=== PATIENT | female | born 1980 | race Caucasian/White ===

== ENCOUNTER 2018-06-23 01:15 | Inpatient (IN) | payer MEDICARE, MEDICAID ==
[~2018-06-23] VITALS: Ht 167.6 cm; Wt 125.8 kg
[2018-06-23] VITALS (7 sets, daily range): BP systolic 115–161; BP diastolic 64–109; Ht 167.6 cm; Wt 125.8 kg
--- NOTE | ~2018-06-23 | HP ---
PATIENT: MARYBEL MCFARLANE MEDICAL RECORD: [id number] ACCOUNT: [id number] LOCATION:[address] : 80 ADMISSION DATE: 06/23/18 PCP: No PCP HISTORY AND PHYSICAL EXAMINATION DATE OF ADMISSION: 06/23/2018 CHIEF COMPLAINT: Shortness of breath. HISTORY: This is a 37-year-old female who actually lives in [place], who came down to [place] to go to [facility], to the [facility]. She presented to the ER with worsening shortness of breath over the last 3 days. She has had cough, subjective fever and chills, and felt cold. She has dyspnea on exertion. She has past medical history of congestive heart failure with ejection fraction as low as 15%. She says she has no history of coronary artery disease, so this may be cardiomyopathy and this was diagnosed at age 28. Chest x-ray showed enlarged heart with patchy airspace consolidation, more on the right side, along with a large pleural effusion. White count is elevated at 16,000. Her proBNP is 1424. She is admitted for acute bacterial pneumonia with history of CHF. Her primary care physician is Dr. Schultz in [place] and her metal can inspector is from [place] who comes to somewhere in [place] once every 2 weeks. She does not know how to spell his name. She just saw him last week and is scheduled to have an echocardiogram. She has not had one done in over 6 months and that last one was reportedly done at [facility] and her ejection fraction then may have been around 20%. PAST MEDICAL AND SURGICAL HISTORY: CHF with ejection fraction somewhere between 15% to 20%. She sees metal can inspector who comes out of [place] to [place] every 2 weeks. She has a history of restless leg syndrome. PAST SURGICAL HISTORY: times 2 and surgery to repair heel spur. ALLERGIES: CODEINE. HABITS: Never smoked. She does drink some alcohol. Denies any illicit drug use. SOCIAL HISTORY: She lives in [place] with her 2 children and 1 grandson. FAMILY HISTORY: Father is alive with history of diabetes. Mother is alive with history of high cholesterol. CURRENT MEDICATIONS: (no known doses) include carvedilol, lisinopril, Lasix, Aldactone, K-Dur, and Mirapex. She gets her medications at [facility]. REVIEW OF SYSTEMS: GENERAL: No major weight changes. HEENT: No particular sinus or allergy problems. RESPIRATORY: No known diagnosis of asthma or emphysema. She had pneumonia once when she was 7 years old. CARDIAC: Again, what sounds like cardiomyopathy. No history of coronary artery disease. GASTROINTESTINAL: Denies reflux or heartburn. GENITOURINARY: No significant problems there. MUSCULOSKELETAL: No significant problems there. NEUROLOGIC: No migraines or seizures. HISTORY AND PHYSICAL [id number] MARYBEL MCFARLANE PSYCHIATRIC: No depression or melancholia. PHYSICAL EXAMINATION: VITAL SIGNS: When she got to the Emergency Department, her temperature was 99.6 with heart rate of 130, respirations were 20, blood pressure was 155/91, 85% O2 sat initially. Currently, temperature 98.2, pulse 90, respirations 124, blood pressure 121/74, and O2 sat 99% on supplemental oxygen. HEENT: Grossly within normal limits. NECK: Supple. No JVD or bruit. HEART: Tachycardia. LUNGS: Fairly clear. ABDOMEN: Soft, obese, and nontender. EXTREMITIES: No pitting edema. LABORATORY DATA: CBC with white count of 16,200, hemoglobin 11.7, hematocrit 37.8, and 84% neutrophils. Basic metabolic panel is all essentially normal. Liver functions are all normal. INR 1.06. Troponin less than 0.017. ProBNP 1424. DIAGNOSTIC DATA: Chest x-ray shows an enlarged heart; patchy airspace consolidations, more so in the right lung; and a large pleural effusion is noted. ASSESSMENT: 1. Acute bacterial pneumonia. 2. Chronic cardiomyopathy with ejection fraction 15% to 20%, last checked by an echo over 6 months ago. PLAN: She is admitted for IV antibiotics and respiratory meds. We will check an echocardiogram. We will try to call [facility] here and see if we can get doses on her from her local [facility] in [place] and continue those medications. Other tests or procedures as warranted. TRANSINT:[id number] Voice Confirmation ID: [id number] DOCUMENT ID: [id number] BRYCE HAYDEN MD at 0816 CC: [id number] DICTATION DATE: 06/23/18 1518 SETUP OPERATOR: 06/23/18 1659 ADM IN [place] [id number] [place] [address]
[2018-06-23] MEDS ORDERED: LISINOPRIL5 MG (01:27)
[2018-06-23] MEDS ORDERED: COREG25 MG (01:27)
[2018-06-23] MEDS ORDERED: ALDACTONE50 MG (01:28)
[2018-06-23] MEDS ORDERED: FUROSEMIDE20 MG (01:28)
[2018-06-23] MEDS ORDERED: K-DUR20 MEQ (01:28)
[2018-06-23] MEDS ORDERED: MIRAPEX0.5 MG (01:28)
[2018-06-23 02:05] LABS: BASOPHILS 0.2 % (0-2); EOSINOPHILS 0.8 % (0-7); HEMATOCRIT 37.8 % (36.0-48.0); HEMOGLOBIN 11.7 g/dL (12-16); IMMATURE GRANULOCYTES 0.9 % (0-5); LYMPHOCYTES 8.7 % (15-50); MCH 26.2 pg (26.0-34.0); MCV 84.8 fL (80.0-100.0); MONOCYTES 5.3 % (2-11); NEUTROPHILS 84.1 % (40-80); PLATELET COUNT 322 10x3/uL (130-400); RBC 4.46 10x6/uL (4.00-5.40); RDW 14.9 % (11.5-14.5); WBC 16.2 10x3/uL (4.8-10.8)
[2018-06-23 02:10] LABS: ALBUMIN 3.5 g/dL (3.4-5.0); ALKALINE PHOSPHATASE 86 U/L (46-116); ALT (SGPT) 47 U/L (10-68); BILIRUBIN - TOTAL 0.56 mg/dL (0.2-1.3); CALC OSMOLALITY 281 mosm/kg (275-300); CALCIUM 7.7 mg/dL (8.5-10.1); CARBON DIOXIDE 23.7 mmol/L (21.0-32.0); CHLORIDE - SERUM 106 mmol/L (98-107); CREATININE - SERUM 0.8 mg/dL (0.6-1.3); GLUCOSE 142 mg/dL (74-106); PROTEIN - SERUM 7.5 g/dL (6.4-8.2); SODIUM 141 mmol/L (136-145); UREA NITROGEN 10 mg/dL (7-18); eGFR NON AFRICAN AMERICAN 85 mL/min (90-120)
[2018-06-23 02:12] LABS: APTT 28.5 SECONDS (22.8-39.4); INR 1.06 (0.85-1.17); PROTIME 13.4 SECONDS (11.6-15.0)
[2018-06-23 02:20] LABS: CKMB 1.2 U/L (0.0-3.6); CREATINE KINASE 46 UL (21-215); PRO BNP 1424 pg/mL (0-125)
[2018-06-23 02:24] LABS: TROPONIN-I < 0.017 ng/mL (0.000-0.060)
[2018-06-23] MEDS ORDERED: MIRAPEX ER1.5 MG PO (15:43)
[2018-06-23] MEDS ORDERED: ALDACTONE25 MG PO (15:44)
[2018-06-23] MEDS ORDERED: LASIX40 MG PO (15:45)
[2018-06-23] MEDS ORDERED: COREG6.25 MG PO (15:45)
[2018-06-23] MEDS ORDERED: LISINOPRIL10 MG PO (15:45)
[2018-06-24 06:25] VITALS: BP 116/62
[2018-06-24 06:28] LABS: BASOPHILS 0.6 % (0-2); EOSINOPHILS 2.9 % (0-7); HEMATOCRIT 36.2 % (36.0-48.0); IMMATURE GRANULOCYTES 1.6 % (0-5); MCH 25.6 pg (26.0-34.0); MCHC 30.4 g/dL (31.0-37.0); MCV 84.4 fL (80.0-100.0); MEAN PLATELET VOLUME 8.9 fL (7.4-10.4); MONOCYTES 5.2 % (2-11); NEUTROPHILS 68.7 % (40-80); PLATELET COUNT 315 10x3/uL (130-400); RBC 4.29 10x6/uL (4.00-5.40); RDW 15.3 % (11.5-14.5); WBC 8.1 10x3/uL (4.8-10.8)
[2018-06-24 06:52] LABS: CALC OSMOLALITY 280 mosm/kg (275-300); CALCIUM 7.8 mg/dL (8.5-10.1); CARBON DIOXIDE 27.7 mmol/L (21.0-32.0); CHLORIDE - SERUM 103 mmol/L (98-107); CREATININE - SERUM 0.6 mg/dL (0.6-1.3); GLUCOSE 125 mg/dL (74-106); POTASSIUM - SERUM 3.9 mmol/L (3.5-5.1); SODIUM 141 mmol/L (136-145); UREA NITROGEN 11 mg/dL (7-18); eGFR NON AFRICAN AMERICAN > 90 mL/min (90-120)
[2018-06-24 08:55] VITALS: BP 111/50
[2018-06-24 16:30] VITALS: BP 141/73
[2018-06-24 21:09] VITALS: BP 115/69
[2018-06-25 06:07] VITALS: BP 119/83
[2018-06-25 06:38] LABS: ANION GAP 10.9 mmol/L (8-16); CALCIUM 8.4 mg/dL (8.5-10.1); CARBON DIOXIDE 29.5 mmol/L (21.0-32.0); POTASSIUM - SERUM 3.4 mmol/L (3.5-5.1)
[2018-06-25 06:43] LABS: CREATININE - SERUM 0.9 mg/dL (0.6-1.3)
[2018-06-25 07:26] LABS: BASOPHILS 0.6 % (0-2); EOSINOPHILS 3.2 % (0-7); HEMATOCRIT 38.3 % (36.0-48.0); HEMOGLOBIN 11.8 g/dL (12-16); IMMATURE GRANULOCYTES 1.4 % (0-5); LYMPHOCYTES 24.2 % (15-50); MCH 25.8 pg (26.0-34.0); MCHC 30.8 g/dL (31.0-37.0); MCV 83.8 fL (80.0-100.0); MEAN PLATELET VOLUME 9.1 fL (7.4-10.4); MONOCYTES 7.2 % (2-11); NEUTROPHILS 63.4 % (40-80); PLATELET COUNT 358 10x3/uL (130-400); RBC 4.57 10x6/uL (4.00-5.40); WBC 9.9 10x3/uL (4.8-10.8)
[2018-06-25] MEDS ORDERED: AUGMENTIN 875-11 TAB PO (08:23)
[2018-06-25 08:26] VITALS: BP 109/66
== END 2018-06-25 13:38 | disposition home or self-care (01) | DRG 291 ==
LOC: D.ER 01:15 → D.M2 03:19 → D.SDCHOLD 10:42 → D.M2 10:44
PROVIDERS: Emergency Medicine; Family Medicine
DX: I11.0 Hypertensive heart disease with heart failure (principal); J15.9 Unspecified bacterial pneumonia; I42.9 Cardiomyopathy, unspecified; I50.9 Heart failure, unspecified; G25.81 Restless legs syndrome